=== PATIENT | female | born 1975 | race Caucasian/White ===

== ENCOUNTER 2021-04-25 23:33 | Emergency (ER) | payer OTHER ==
[~2021-04-25] VITALS: Ht 162.6 cm; Wt 87.1 kg
[~2021-04-25 23:33] MED LIST: CINNAMON; CODACE30 PO; CODGUAEL PO; ERYSTE250 PO; FLAX PO; LORA1 PO; MAGNESIUM; METF500 PO; NAPR500 PO
[2021-04-26] MEDS ORDERED: SULTRIDS PO (00:09)
== END 2021-04-26 02:49 | disposition home or self-care (01) ==
LOC: ER 23:33
DX: U07.1 COVID-19 (principal); Z88.1 Allergy status to other antibiotic agents; Z79.84 Long term (current) use of oral hypoglycemic drugs
CPT/HCPCS: 71045; 99284-25; A9270

== ENCOUNTER → 2022-09-17 | Outpatient (CLI) | payer OTHER ==
[~2022-09-17] MED LIST changes: +SULTRIDS PO
[2022-09-20 08:10] LABS: HPV 16 Negative (Negative); HPV 18 Negative (Negative); HPV OTHER HR TYPES Negative (Negative)
== END | disposition home or self-care (01) ==
LOC: LAB SHORT 15:15
PROVIDERS: Nurse Practitioner Family
DX: Z01.419 Encounter for gynecological examination (general) (routine) without abnormal findings (principal)
CPT/HCPCS: 87624; G0145

== ENCOUNTER 2024-07-11 08:47 | Emergency (ER) | payer OTHER ==
[~2024-07-11] VITALS: Ht 162.6 cm; Wt 91.6 kg
[2024-07-11 10:12] VITALS: BP 142/94
== END 2024-07-11 10:17 | disposition home or self-care (01) ==
LOC: ER 08:47
DX: S61.210A Laceration without foreign body of right index finger without damage to nail, initial encounter (principal); W26.0XXA Contact with knife, initial encounter
CPT/HCPCS: 99282